=== PATIENT | female | born 1930 | race Caucasian/White ===

== ENCOUNTER 2018-01-31 21:26 | Inpatient (IN) | payer MEDICARE, MEDICAID ==
[~2018-01-31] VITALS: Ht 160 cm; Wt 54.9 kg
[2018-01-31 22:57] LABS: CHLORIDE 102 mEq/L (98-107)
[2018-01-31 23:01] LABS: PROTHROMBIN TIME 10.4 sec (9.4-11.6)
[2018-01-31 23:02] LABS: BASOPHILS % 0.8 % (0.0-2.0); EOSINOPHILS % 0.9 % (0.0-5.0); HEMATOCRIT. 37.2 % (36.0-48.0); HEMOGLOBIN. 12.9 g/dL (12.0-16.0); LYMPHOCYTES % 21.3 % (20.0-50.0); MEAN CORPUSCULAR HEMOGLOBIN 30.6 pg (28.0-32.0); MEAN CORPUSCULAR VOLUME 88.2 fL (81.0-99.0); MEAN PLATELET VOLUME 8.1 fl (7.4-10.4); MONOCYTES % 5.1 % (2.0-8.0); NEUTROPHILS % 71.9 % (40.0-76.0); PLATELET 170 x1000/uL (130-400); RED BLOOD CELL COUNT 4.21 mill/uL (4.2-5.4); RED CELL DISTRIBUTION WIDTH 13.1 % (11.6-14.6)
[2018-01-31] MEDS ORDERED: FAMOTIDINE 20MG/2ML VIAL IV STA (23:12)
[2018-01-31] MEDS ORDERED: ONDANSETRON HCL 4MG/2ML VIAL IV STA (23:12)
[2018-01-31] MEDS ORDERED: MORPHINE SULFATE 4 MG/ML CPJ (NOT FOR IM USE) IV STA (23:12)
[2018-01-31] MEDS ORDERED: SODIUM CHLORIDE 0.9% 1,000 ML IV ONE (23:33)
[2018-01-31 23:37] LABS: CHLORIDE 101 mEq/L (98-107)
[2018-01-31 23:41] LABS: ETHANOL BLOOD < 10 mg/dL
[2018-02-01] MEDS ORDERED: HYDRALAZINE 20MG/ML VIAL IV SCH (03:13)
[2018-02-01] MEDS ORDERED: ONDANSETRON HCL 4MG TABLET PO PRN (06:15)
[2018-02-01] MEDS ORDERED: CLONIDINE 0.1MG TABLET PO PRN (06:15)
[2018-02-01] MEDS ORDERED: MORPHINE SULFATE 4 MG/ML CPJ (NOT FOR IM USE) IV PRN (06:15)
[2018-02-01] MEDS ORDERED: DEXTROSE 50% WATER 50ML SYRINGE IV PRN (06:15)
[2018-02-01] MEDS ORDERED: METF10002 MT (06:38)
[2018-02-01] MEDS ORDERED: DAPA5TAB MT (06:38)
[2018-02-01] MEDS ORDERED: ATOR20TA65 MT (06:38)
[2018-02-01] MEDS ORDERED: CALC-25 MT (06:45)
[2018-02-01] MEDS ORDERED: GLIP10TA10 MT (06:45)
[2018-02-01 06:51] VITALS: BP 139/57
[2018-02-01] MEDS ORDERED: DEXT 5%/0.45% NACL KCL 20MEQ/L 1,000 ML IV SCH (07:00)
[2018-02-01] MEDS ORDERED: INSU100I7 SQ (07:10)
[2018-02-01] MEDS ORDERED: INSU100I24 SQ (07:10)
[2018-02-01] MEDS ORDERED: NON FORMULARY PATIENT HOME MED EA SUBCUT SCH (07:45)
[2018-02-01 08:00] VITALS: BP 131/41
[2018-02-01] MEDS: BLOOD SUGAR DIAGNOSTIC STRIP TEST SCH ×4 (08:16→21:56)
[2018-02-01] MEDS ORDERED: HYDRALAZINE 20MG/ML VIAL IV PRN (08:30)
[2018-02-01] MEDS: INSULIN LISPRO 100 UNITS/ML SUBCUT SCH ×6 (08:31→21:00)
[2018-02-01] MEDS: AMLODIPINE 10MG TABLET PO SCH (08:57)
[2018-02-01] MEDS: ATORVASTATIN CALCIUM 20MG TABLET PO SCH (08:57)
[2018-02-01] MEDS ORDERED: HYDRALAZINE 10 MG in SODIUM CHLORIDE 0.9% 49.5 ML IV PRN (09:15)
[2018-02-01] MEDS ORDERED: INSULIN GLARGINE UD 100 UNITS/ML SYR SUBCUT SCH (10:00)
[2018-02-01] MEDS ORDERED: LEVOFLOXACIN 500MG PREMIX 100 ML IV SCH (10:15)
[2018-02-01 12:00] VITALS: BP 118/43
[2018-02-01] MEDS: INSULIN GLARGINE UD 100 UNITS/ML SYR SUBCUT SCH ×2 (12:32→22:56)
[2018-02-01 16:00] VITALS: BP 117/49
[2018-02-01 20:00] VITALS: BP 120/47
[2018-02-01] MEDS: SODIUM CHLORIDE 0.45% 1,000 ML IV SCH (22:47)
[2018-02-02 00:46] VITALS: BP 139/54
[2018-02-02 04:00] VITALS: BP 135/75
[2018-02-02 06:08] LABS: BASOPHILS % 0.4 % (0.0-2.0); EOSINOPHILS % 0.1 % (0.0-5.0); HEMATOCRIT. 35.6 % (36.0-48.0); HEMOGLOBIN. 12.2 g/dL (12.0-16.0); MEAN CORPUSCULAR HEMOGLOBIN 30.3 pg (28.0-32.0); MEAN CORPUSCULAR VOLUME 88.7 fL (81.0-99.0); MEAN PLATELET VOLUME 8.1 fl (7.4-10.4); MONOCYTES % 6.4 % (2.0-8.0); NEUTROPHILS % 82.1 % (40.0-76.0); PLATELET 164 x1000/uL (130-400); RED BLOOD CELL COUNT 4.02 mill/uL (4.2-5.4); RED CELL DISTRIBUTION WIDTH 12.9 % (11.6-14.6)
[2018-02-02 06:29] LABS: CHLORIDE 107 mEq/L (98-107)
[2018-02-02 06:35] LABS: AMYLASE 161 IU/L (25-115)
[2018-02-02] MEDS: INSULIN LISPRO 100 UNITS/ML SUBCUT SCH ×6 (07:20→17:50)
[2018-02-02] MEDS: BLOOD SUGAR DIAGNOSTIC STRIP TEST SCH ×3 (07:35→18:19)
[2018-02-02 08:00] VITALS: BP 166/63
[2018-02-02] MEDS: AMLODIPINE 10MG TABLET PO SCH (08:39)
[2018-02-02] MEDS: SODIUM CHLORIDE 0.45% 1,000 ML IV SCH (08:39)
[2018-02-02] MEDS: ATORVASTATIN CALCIUM 20MG TABLET PO SCH (08:39)
[2018-02-02] MEDS: LEVOFLOXACIN 250MG PREMIX 50 ML IV SCH (09:37)
[2018-02-02] MEDS: INSULIN GLARGINE UD 100 UNITS/ML SYR SUBCUT SCH (09:44)
[2018-02-02 12:00] VITALS: BP 146/54
[2018-02-02 16:00] VITALS: BP 148/63
[2018-02-02] MEDS: DEXT 5%/0.45% NACL KCL 20MEQ/L 1,000 ML IV SCH (16:15)
[2018-02-02] MEDS ORDERED: SKIN ADHESIVE 0.7 GM EA TOP ONE (19:50)
[2018-02-02] MEDS ORDERED: BUPIVACAINE HCL/PF 0.5% (5MG/ML) 10ML ONE (19:50)
[2018-02-02 20:00] VITALS: BP 162/67
[2018-02-02] MEDS ORDERED: NEOSTIGMINE METHYLSULFATE 1MG/ML 10 ML VIAL ONE (20:23)
[2018-02-02] MEDS ORDERED: ROCURONIUM BROMIDE 10MG/ML VIAL 5ML IV ONE (20:23)
[2018-02-02] MEDS ORDERED: GLYCOPYRROLATE 0.2 MG/ML 2ML VIAL ONE (20:23)
[2018-02-02] MEDS ORDERED: FENTANYL CITRATE/PF 50MCG/ML 2ML VIAL ONE (20:23)
[2018-02-02] MEDS ORDERED: MIDAZOLAM HCL 2 MG/2 ML VIAL ONE (20:23)
[2018-02-02] MEDS ORDERED: PROPOFOL 200MG/20ML VIAL IV ONE (20:23)
[2018-02-02] MEDS ORDERED: DEXAMETHASONE 4MG/ML 1ML VIAL ONE (20:24)
[2018-02-02] MEDS ORDERED: ONDANSETRON HCL 4MG/2ML VIAL ONE (20:24)
[2018-02-02] MEDS ORDERED: SUCCINYLCHOLINE CHLORIDE 200MG/10ML VIAL IV ONE (20:26)
[2018-02-02] MEDS ORDERED: LIDOCAINE HCL/PF 1% 10 MG/ML 5ML VIAL ONE ×2 (20:27→20:29)
[2018-02-02] MEDS ORDERED: LABETALOL 5MG/ML SYR 20 MG/4 ML SYRINGE IV PRN (21:00)
[2018-02-02] MEDS ORDERED: ONDANSETRON HCL 4MG/2ML VIAL IV PRN (21:00)
[2018-02-02] MEDS ORDERED: MEPERIDINE HCL/PF 25MG/ML CPJ IV PRN (21:00)
[2018-02-02] MEDS ORDERED: HYDROMORPHONE HCL/PF 2MG/ML CPJ IV PRN (21:00)
[2018-02-02] MEDS ORDERED: EPHEDRINE SULFATE 50MG/ML VIAL ONE (21:04)
[2018-02-03] VITALS (7 sets, daily range): BP systolic 116–160; BP diastolic 52–64
[2018-02-03] MEDS: DEXT 5%/0.45% NACL KCL 20MEQ/L 1,000 ML IV SCH ×2 (02:52→17:53)
[2018-02-03] MEDS: BLOOD SUGAR DIAGNOSTIC STRIP TEST SCH ×5 (06:50→21:46)
[2018-02-03 07:33] LABS: HEMATOCRIT. 35.7 % (36.0-48.0); MEAN CORPUSCULAR HEMOGLOBIN 30.1 pg (28.0-32.0); MEAN CORPUSCULAR VOLUME 89.6 fL (81.0-99.0); MEAN PLATELET VOLUME 8.1 fl (7.4-10.4); PLATELET 151 x1000/uL (130-400); RED BLOOD CELL COUNT 3.98 mill/uL (4.2-5.4)
[2018-02-03] MEDS: ATORVASTATIN CALCIUM 20MG TABLET PO SCH (08:10)
[2018-02-03] MEDS: AMLODIPINE 10MG TABLET PO SCH (08:10)
[2018-02-03] MEDS: INSULIN LISPRO 100 UNITS/ML SUBCUT SCH ×8 (08:16→22:00)
[2018-02-03 08:17] LABS: CHLORIDE 109 mEq/L (98-107)
[2018-02-03 08:36] LABS: PLATELET ESTIMATE NORMAL
[2018-02-03] MEDS: LEVOFLOXACIN 250MG PREMIX 50 ML IV SCH (09:32)
[2018-02-03] MEDS: INSULIN GLARGINE UD 100 UNITS/ML SYR SUBCUT SCH ×3 (09:38→22:00)
[2018-02-04] VITALS: BP 134/62
[2018-02-04 04:00] VITALS: BP 136/54
[2018-02-04] MEDS: DEXT 5%/0.45% NACL KCL 20MEQ/L 1,000 ML IV SCH ×2 (06:25→18:55)
[2018-02-04] MEDS: BLOOD SUGAR DIAGNOSTIC STRIP TEST SCH ×4 (06:25→21:00)
[2018-02-04 06:46] LABS: BASOPHILS % 0.3 % (0.0-2.0); EOSINOPHILS % 0.1 % (0.0-5.0); HEMATOCRIT. 35.1 % (36.0-48.0); HEMOGLOBIN. 11.9 g/dL (12.0-16.0); LYMPHOCYTES % 10.2 % (20.0-50.0); MEAN CORPUSCULAR HEMOGLOBIN 30.3 pg (28.0-32.0); MEAN CORPUSCULAR VOLUME 88.9 fL (81.0-99.0); MONOCYTES % 6.7 % (2.0-8.0); NEUTROPHILS % 82.7 % (40.0-76.0); PLATELET 168 x1000/uL (130-400); RED BLOOD CELL COUNT 3.94 mill/uL (4.2-5.4); RED CELL DISTRIBUTION WIDTH 13.2 % (11.6-14.6)
[2018-02-04 06:51] LABS: CHLORIDE 111 mEq/L (98-107)
[2018-02-04 08:00] VITALS: BP 115/70
[2018-02-04] MEDS: INSULIN LISPRO 100 UNITS/ML SUBCUT SCH ×7 (08:53→22:17)
[2018-02-04] MEDS: AMLODIPINE 10MG TABLET PO SCH (08:55)
[2018-02-04] MEDS: ATORVASTATIN CALCIUM 20MG TABLET PO SCH (08:56)
[2018-02-04] MEDS: LEVOFLOXACIN 250MG PREMIX 50 ML IV SCH (10:51)
[2018-02-04] MEDS: INSULIN GLARGINE UD 100 UNITS/ML SYR SUBCUT SCH ×2 (10:51→22:16)
[2018-02-04 12:00] VITALS: BP 110/80
[2018-02-04 16:00] VITALS: BP 130/53
[2018-02-04] MEDS ORDERED: INSULIN LISPRO 100 UNITS/ML SUBCUT SCH (17:20)
[2018-02-04 20:00] VITALS: BP 148/51
[2018-02-05] VITALS: BP 143/61
[2018-02-05 04:00] VITALS: BP 142/71
[2018-02-05] MEDS: BLOOD SUGAR DIAGNOSTIC STRIP TEST SCH (06:58)
[2018-02-05 08:00] VITALS: BP 147/88
[2018-02-05] MEDS: ATORVASTATIN CALCIUM 20MG TABLET PO SCH (08:22)
[2018-02-05] MEDS: AMLODIPINE 10MG TABLET PO SCH (08:22)
[2018-02-05] MEDS: DEXT 5%/0.45% NACL KCL 20MEQ/L 1,000 ML IV SCH (08:22)
[2018-02-05] MEDS: INSULIN LISPRO 100 UNITS/ML SUBCUT SCH ×2 (08:25)
[2018-02-05] MEDS ORDERED: LEVOFLOXACIN 250MG TABLET PO SCH (10:00)
[2018-02-05] MEDS: INSULIN GLARGINE UD 100 UNITS/ML SYR SUBCUT SCH (10:12)
[2018-02-05 10:30] VITALS: BP 145/70
== END 2018-02-05 12:06 | disposition home or self-care (01) | DRG 263 ==
LOC: ER 21:26 → EDBEDREQSVC 23:48 → EDBEDREQ 23:48 → ENRESERV 23:53 → 6EST 02-01 04:29 → ER 02-01 05:02
PROVIDERS: ADMIT Internal Medicine; ATTEND Internal Medicine
PROC: 0FT44ZZ Resection of Gallbladder, Percutaneous Endoscopic Approach (ICD-10-PCS; principal; 2018-02-02 18:00)
DX: K85.10 Biliary acute pancreatitis without necrosis or infection (principal); E87.2 Acidosis; K80.12 Calculus of gallbladder with acute and chronic cholecystitis without obstruction; E11.9 Type 2 diabetes mellitus without complications; I35.0 Nonrheumatic aortic (valve) stenosis; E78.5 Hyperlipidemia, unspecified; I10 Essential (primary) hypertension; Z83.3 Family history of diabetes mellitus; Z79.84 Long term (current) use of oral hypoglycemic drugs
CPT/HCPCS: 36415; 71045; 74176; 76705; 78227; 80053; 80061; 80076; 82150; 82962; 83605; 83690; 83880; 84484; 85025; 85610; 88304; 93005; 93306; 99285; A9537; G0482; J0330; J0360; J1100; J1170; J1815; J1956; J2250; J2270; J2405; J2704; J2710; J3010; J3490; J7030

== ENCOUNTER 2018-07-04 11:15 | Emergency (ER) | payer MEDICARE, MEDICAID ==
[~2018-07-04] VITALS: Ht 160 cm; Wt 55.0 kg
[~2018-07-04 11:15] MED LIST: ATOR20TA65 MT; CALC-25 MT; DAPA5TAB MT; GLIP10TA10 MT; INSU100I24 SQ; INSU100I7 SQ; METF10004 MT
[2018-07-04] MEDS ORDERED: KETOROLAC 60MG/2ML VIAL IM ONE (13:45)
[2018-07-04 14:08] VITALS: BP 181/74
== END 2018-07-04 15:11 | disposition home or self-care (01) ==
LOC: ER 11:15
DX: M54.41 Lumbago with sciatica, right side (principal); E11.9 Type 2 diabetes mellitus without complications; E78.00 Pure hypercholesterolemia, unspecified; Z90.49 Acquired absence of other specified parts of digestive tract; Z79.4 Long term (current) use of insulin; Z79.84 Long term (current) use of oral hypoglycemic drugs
CPT/HCPCS: 96372; 99283; J1885